=== PATIENT | male | born 1945 | race Caucasian/White ===

== ENCOUNTER 2018-04-01 11:43 | Outpatient (CLI) | payer MEDICARE ==
[2018-04-01] MEDS ORDERED: GADOBUTROL 7.5 MMOL/7.5 ML VIAL ONE (12:24)
[2018-04-01 12:39] LABS: CALCIUM 9.3 mg/dL (8.5-10.3); CREATININE 1.4 mg/dL (0.6-1.2)
[2018-04-01] MEDS ORDERED: GADOBUTROL 7.5 MMOL/7.5 ML VIAL IVP ONE (12:49)
--- NOTE | 2018-04-02 09:01 | MRI Report ---
Procedure Date: 04/01/2018 Accession Number: [id number] / [id number] Procedure: MRI - Brain W/WO CPT Code: FULL RESULT: EXAM: MRI BRAIN AND INTERNAL AUDITORY CANAL (IAC),WITHOUT AND WITH CONTRAST. EXAM DATE: 04/01/2018 01:15 PM. CLINICAL HISTORY: 72-year-old male. MIGRAINE, TINNITUS, VERTIGO. COMPARISON: None. TECHNIQUE: Multiplanar, multisequence T1-weighted and fluid-sensitive MRI sequences of the brain and IACs were performed. Other: None. IV Contrast: 7.5 mL Gadavist. FINDINGS: Brain Volume: Normal for age. Parenchyma/Dura: There is a 1.4 cm focus of high DWI signal and associated FLAIR signal abnormality (series 305 image 120, series 401 image 15) with nearly normalized associated ADC values, therefore concerning for subacute infarct, at least one week old. No MRI evidence of acute infarction. No acute hemorrhage or mass moderate scattered T2/FLAIR hyperintense periventricular, deep, and subcortical white matter lesions within cerebral hemispheres bilaterally. Chronic infarction left occipital lobe as evidenced by small focus of encephalomalacia and gliosis (series 401 image 13) No abnormal enhancement. Internal Auditory Canals (IACs): Normal. No cranial nerve lesion or inflammatory process identified. The inner ear structure are symmetric and unremarkable. Ventricles/Cisterns: No hydrocephalus. No abnormal extra-axial fluid collection or hemorrhage. Orbits: Symmetric and unremarkable. Sella Turcica: The pituitary gland, cavernous sinuses, suprasellar cistern and optic chiasm are unremarkable. Vasculature: Normal signal flow void is seen in the major arterial structures at the skull base. The dural sinuses are patent and enhance normally. Sinuses: No acute sinus disease. Bones: No focal pathologic appearing marrow signal changes. Other: None. IMPRESSION: 1. No evidence of retrocochlear pathology. The cerebellopontine angles bilaterally, the internal auditory canals bilaterally, the cochleas bilaterally, and the vestibular apparatuses bilaterally are unremarkable. No associated abnormal enhancement. 2. There is a 1.4 cm focus of high DWI signal and associated FLAIR signal abnormality (series 305 image 120, series 401 image 15) with nearly normalized associated ADC values, therefore concerning for subacute infarct, at least one week old. No MRI evidence of acute infarction. 3. Moderate scattered T2/FLAIR hyperintense periventricular, deep, and subcortical white matter lesions within cerebral hemispheres bilaterally. While nonspecific, these are favored to represent sequela of chronic microangiopathy. 4. Chronic infarction left occipital lobe as evidenced by small focus of encephalomalacia and gliosis (series 401 image 13) RADIA The above findings were discussed with Maik Monreal by Dr. Josie Ramirez at 09:00 hrs on 04/02/18.
== END 2018-04-01 11:44 | disposition home or self-care (01) ==
LOC: DI 11:43
PROVIDERS: ATTEND Family Medicine
DX: G43.909 Migraine, unspecified, not intractable, without status migrainosus (principal); H93.19 Tinnitus, unspecified ear; R42 Dizziness and giddiness
CPT/HCPCS: 36415; 70553; 80048; A9585

== ENCOUNTER 2018-04-14 15:07 | Outpatient (CLI) | payer MEDICARE ==
--- NOTE | 2018-04-15 13:33 | Ultrasound Report ---
Reason: CVA Procedure Date: 04/14/2018 Accession Number: [id number] / [id number] Procedure: US - Carotid Doppler Complete CPT Code: FULL RESULT: EXAM: BILATERAL CAROTID AND VERTEBRAL ARTERY DUPLEX DOPPLER ULTRASOUND: EXAM DATE: 04/14/2018 03:47 PM CLINICAL HISTORY: Recent left cerebral hemisphere CVA. COMPARISON: 04/01/2018 brain MRI. TECHNIQUE: Grayscale imaging, color Doppler, and duplex spectral Doppler were used to evaluate the carotid and vertebral arteries bilaterally. Static images were obtained. FINDINGS: Mild plaque is identified in the right and left common and internal carotid arteries. Normal antegrade flow is present in bilateral vertebral arteries. VELOCITIES (cm/sec): Right CCA mid: PSV 97 cm/sec CCA dist: PSV 73 cm/sec ICA prox: PSV 59 cm/sec, EDV 18 cm/sec ICA mid: PSV 70 cm/sec, EDV 27 cm/sec ICA dist: PSV 71 cm/sec, EDV 23 cm/sec ECA: PSV 93 cm/sec Vert: PSV 55 cm/sec ICA/CCA: 0.75 Left CCA mid: PSV 88 cm/sec CCA dist: PSV 67 cm/sec ICA prox: PSV 77 cm/sec, EDV 26 cm/sec ICA mid: PSV 78 cm/sec, EDV 26 cm/sec ICA dist: PSV 91 cm/sec, EDV 30 cm/sec ECA: PSV 93 cm/sec Vert: PSV 52 cm/sec ICA/CCA: 1.03 ICA diameter stenosis: Right: <50% by velocity and <70% by NASCET criteria. Left: <50% by velocity and <70% by NASCET criteria. IMPRESSION: 1. No significant bilateral carotid artery plaquing. 2. In the right carotid artery there are no elevated carotid artery velocities to suggest hemodynamically significant stenosis. 3. In the left carotid artery there are no elevated carotid artery velocities to suggest hemodynamically significant stenosis. 4. Normal antegrade flow is present in bilateral vertebral arteries. General Recommendations: Stenosis =50% ICA - Follow-up ultrasound 6-12 months Stenosis <50% ICA - High Risk Patient with plaque - Follow-up ultrasound 1-2 years Normal Study but High Risk Patient - Follow-up ultrasound 3-5 years Management recommendations and diagnostic criteria are based on current IAC endorsed standards in Carotid Artery Stenosis: Grayscale and Doppler Ultrasound Diagnosis. Validated velocity measurements with angiographic measurements and velocity criteria are extrapolated from diameter data as defined by the Society of Radiologists in Ultrasound Consensus Conference Radiology 2003; 229;340-346. RADIA
== END 2018-04-14 15:08 | disposition home or self-care (01) ==
LOC: DI 15:07
PROVIDERS: ATTEND Family Medicine
DX: I63.9 Cerebral infarction, unspecified (principal)
CPT/HCPCS: 93880

== ENCOUNTER 2018-11-02 14:33 | Emergency (ER) | payer MEDICARE ==
--- NOTE | 2018-11-02 15:08 | ED Physician Documentation ---
PD HPI FOCAL NEURO - Stated complaint Stated Complaint: STROKE LIKE SYMPTOMS - Chief complaint Chief Complaint: Cardiac - History obtained from History obtained from: Patient, Family - History of Present Illness Timing - onset: Today (This is a 72-year-old gentleman with history of coronary disease and stroke on neuro imaging in the past that was asymptomatic who presents with an episode today where he had severe diplopia and vertigo for 5 minutes. Now pretty much back to normal. It was not associated with headache. He has a history of coronary disease status post remote bypass and has been in bigeminy in the past, that is not a new phenomenon.) Review of Systems Ten Systems: 10 systems reviewed and negative Constitutional: denies: Fever, Chills, Fatigue Nose: denies: Rhinorrhea / runny nose, Congestion Throat: denies: Sore throat Cardiac: denies: Chest pain / pressure, Palpitations Respiratory: denies: Dyspnea, Cough PD PAST MEDICAL HISTORY - Past Medical History Cardiovascular: High cholesterol, Other Respiratory: None Endocrine/Autoimmune: None GI: GERD : Other HEENT: None Psych: None Musculoskeletal: None Derm: None - Past Surgical History Cardiovascular: CABG, Other - Present Medications Home Medications: Ambulatory Orders Medication Instructions Recorded Confirmed Aspirin [Aspir 81] 1 mg ORAL DAILY 08/12/14 08/12/14 Omeprazole [Prilosec] 20 mg ORAL DAILY 08/12/14 08/15/14 Tamsulosin [Flomax] 1 mg ORAL DAILY 08/12/14 08/15/14 Atorvastatin [Lipitor] 80 mg PO DAILY 08/15/14 08/15/14 Multivit-Min/FA/Lycopene/Lut 1 tab PO DAILY 08/15/14 08/15/14 [Centrum Silver Tablet] amLODIPine [Norvasc] 2.5 mg PO ONCE 11/02/18 11/02/18 - Allergies Allergies/Adverse Reactions: Allergies Allergy/AdvReac Type Severity Reaction Status Date / Time Sulfa (Sulfonamide AdvReac Rash Verified 11/02/18 14:45 Antibiotics) - Living Situation Living Situation: reports: With spouse/s.o. - Social History Does the pt have substance abuse?: No - Family History Family history: reports: Non contributory PD ED PE NORMAL - Vitals Vital signs reviewed: Yes - General General: Alert and oriented X 3, No acute distress - HEENT HEENT: PERRL, EOMI - Neck Neck: Supple, no meningeal sign, No bony TTP - Cardiac Cardiac: RRR, No murmur, Other (He was initially on bigeminy and on the monitor but on my exam was back in sinus rhythm) - Respiratory Respiratory: No respiratory distress, Clear bilaterally - Abdomen Abdomen: Soft, Non tender - Back Back: No CVA TTP, No spinal TTP - Derm Derm: Normal color, Warm and dry - Extremities Extremities: No edema, No calf tenderness / cord - Neuro Neuro: Alert and oriented X 3, Normal speech NIHSS - Time Time: 15:00 - Level of Consciousness Level of consciousness: (0) Alert, Keenly responsive LOC Questions: (0) Answers both Q's correct LOC Commands: (0) Performs both correctly - Gaze Best Gaze: (0) Normal - Visual Visual: (0) No loss - Facial Palsy Facial Palsy: (0) Normal, symmetrical movement - Motor Arms (both separate) Motor Arm (right): (0) No drift Motor Arm (left): (0) No drift - Motor Legs (both separate) Motor Leg (right): (0) No drift Motor Leg (left): (0) No drift - Limb Ataxia Limb Ataxia: (0) Absent - Sensory Sensory: (0) Normal - Best Language Best Language: (0) No aphasia - Dysarthria Dysarthria: (0) Normal - Extinction and Inattention (formally neg Extinction and inattention: (0) No abnormality - Total Score/Results Total Score/Result: 0 Results - Vitals Vitals: Vital Signs - 24 hr 11/02/18 11/02/18 11/02/18 14:41 15:02 15:30 Temperature 36.5 C Heart Rate 34 L 68 72 Respiratory 20 18 16 Rate Blood Pressure 147/80 H 142/86 H 126/67 O2 Saturation 97 95 96 11/02/18 11/02/18 11/02/18 16:00 16:30 16:48 Temperature Heart Rate 64 62 65 Respiratory 16 16 16 Rate Blood Pressure 126/77 144/85 H 151/70 H O2 Saturation 98 97 98 11/02/18 17:05 Temperature Heart Rate 61 Respiratory 18 Rate Blood Pressure 143/96 H O2 Saturation 98 Oxygen O2 Source Room air - EKG (time done) 1446 Rate: Rate (enter#) (83) Rhythm: NSR (with ventricular bigeminy) Intervals: Normal AL QRS: Normal Ischemia: Normal ST segments - Labs Labs: Laboratory Tests 11/02/18 11/02/18 11/02/18 14:58 14:58 14:58 WBC 7.2 RBC 4.82 Hgb 15.0 Hct 43.9 MCV 91.2 MCH 31.1 H MCHC 34.1 RDW 13.1 Plt Count 211 MPV 8.5 Neut # (Auto) 4.5 Lymph # (Auto) 1.6 Bremer # (Auto) 1.0 Eos # (Auto) 0.1 Baso # (Auto) 0.1 Absolute Nucleated RBC 0.00 Nucleated RBC % 0.0 Sodium 136 Potassium 4.0 Chloride 105 Carbon Dioxide 23 Anion Gap 8.0 BUN 25 H Creatinine 1.1 Estimated GFR (MDRD) 66 L Glucose 99 Calcium 9.1 Total Bilirubin 0.8 AST 33 ALT 46 Alkaline Phosphatase 70 Troponin I < 0.04 Total Protein 6.9 Albumin 4.0 Globulin 2.9 Albumin/Globulin Ratio 1.4 Lipase 31 - Rads (name of study) CTA Head and Neck Radiology: Discussed with rads (Noncon head normal, Angioma head, multiple areas of atherosclerosis, see verbose reports. CTA of the neck concerning for right vertebral artery dissection and there is also other atherosclerosis on the formal report.) PD MEDICAL DECISION MAKING - ED course ED course: This is a 72-year-old gentleman who presents with what seems like a posterior TIA. He was rushed back from triage because of a pulse of 54 but this was on pulse oximetry and electrically his pulse was more like 70 or 80 and bigeminy which quickly converted to normal sinus rhythm and I do suspect this is not causative. CT angiography of the head and neck shows multiple areas of atherosclerosis but most pressing is a right vertebral artery dissection which may be causative. He was administered aspirin. He will need transfer to a higher level of care for potential neurology and neurosurgery consultation and Billie was called at 4:[address] Dumas at [facility] at [phone], dennis completed. Departure - Departure Disposition: 02 Transfer Acute Care Hosp Clinical Impression: Acute posterior circulation transient ischemic attack, Vertebral artery dissection Condition: Serious
[2018-11-02 15:10] LABS: BASOPHILS # (AUTO) 0.1 10^3/uL (0.0-0.1); BASOPHILS % (AUTO) 0.8 %; EOSINOPHILS # (AUTO) 0.1 10^3/uL (0.0-0.7); EOSINOPHILS % (AUTO) 1.5 %; LYMPHOCYTES # (AUTO) 1.6 10^3/uL (1.5-3.5); LYMPHOCYTES % (AUTO) 21.6 %; MEAN CORPUSCULAR HEMOGLOBIN 31.1 pg (27.0-31.0); MEAN CORPUSCULAR HGB CONC 34.1 g/dL (32.0-36.0); MEAN CORPUSCULAR VOLUME 91.2 fL (80.0-94.0); MEAN PLATELET VOLUME 8.5 fL (7.4-11.4); MONOCYTES % (AUTO) 13.9 %; NEUTROPHILS # (AUTO) 4.5 10^3/uL (1.5-6.6); NEUTROPHILS % (AUTO) 62.2 %; PLT - PLATELET COUNT 211 10^3/uL (130-450); RED BLOOD COUNT 4.82 10^6/uL (4.70-6.10); RED CELL DISTRIBUTION WIDTH 13.1 % (12.0-15.0); WHITE BLOOD COUNT 7.2 x10^3/uL (4.8-10.8)
[2018-11-02 15:16] LABS: ALBUMIN/GLOBULIN RATIO 1.4 (1.0-2.2); BILIRUBIN,TOTAL 0.8 mg/dL (0.2-1.0); CALCIUM 9.1 mg/dL (8.5-10.3); CREATININE 1.1 mg/dL (0.6-1.2); TOTAL PROTEIN 6.9 g/dL (6.7-8.2)
[2018-11-02] MEDS ORDERED: IOPAMIDOL-300 100 ML VIAL ONE (15:31)
--- NOTE | 2018-11-02 16:22 | CT Report ---
Reason: Vertigo, diplopia Procedure Date: 11/02/2018 Accession Number: [id number] / [id number] Procedure: CT - ANGIO HEAD W CPT Code: FULL RESULT: EXAM: CT ANGIOGRAM HEAD. CT SCAN OF THE HEAD WITHOUT AND WITH CONTRAST. EXAM DATE: 11/02/2018 03:43 PM CLINICAL HISTORY: 72-year-old male. Vertigo, diplopia. COMPARISON: MR brain 04/01/2018 TECHNIQUE: - CT Scan Head: Using a multidetector scanner, axial images were acquired from the foramen magnum to the skull vertex prior to and following contrast administration. - CT Angiogram: Using a multidetector scanner, high-resolution axial images were acquired from the skull base through vertex following rapid infusion of intravenous contrast. Reformats: Multiplanar MIP reformats were reconstructed. Nascet criteria used for stenosis measurement. IV Contrast: 80 cc Isovue-300. In accordance with CT protocol optimization, one or more of the following dose reduction techniques were utilized for this exam: automated exposure control, adjustment of mA and/or KV based on patient size, or use of iterative reconstructive technique. FINDINGS: NON-CONTRAST HEAD: Parenchyma: No intraparenchymal hemorrhage. No evidence of mass, midline shift, or CT findings of infarction. Solomon-white differentiation is distinct. Extraaxial Spaces: Normal for age. No subdural or epidural collections identified. Ventricles: Normal in size and position. Sinuses and orbits: Imaged paranasal sinuses, orbits, and mastoids show no significant abnormality. Bones: No evidence of fracture or calvarial defect. Other: None. POST-CONTRAST HEAD: No abnormal enhancement. CT ANGIOGRAM HEAD: Moderate atherosclerosis right carotid siphon, maximal stenosis approximately 50%. Diminutive but patent right posterior communicating artery. Moderate atherosclerosis of left carotid siphon with a maximal stenosis 30-40%. Diminutive but patent right posterior communicating artery. The V4 segment of the right vertebral artery is irregular with narrowing measuring up to 60-70% (for example series 6 image 22). The visualized left vertebral artery is unremarkable. The left PARACHUTE PANEL JOINER is unremarkable. The right PARACHUTE PANEL JOINER is unremarkable. The right MCA is unremarkable. The ACAs bilaterally are unremarkable. The left MCA is unremarkable. DURAL VENOUS SINUSES AND MAJOR CENTRAL VEINS: Patent. IMPRESSION: 1. No evidence of acute intracranial abnormality on the noncontrast CT head. Specifically, no evidence of acute infarct, intracranial hemorrhage, mass effect, midline shift, or hydrocephalus. 2. No abnormal enhancement on the postcontrast CT head. 3. No CTA evidence of high-grade stenosis, large vessel occlusion, aneurysm, or vascular malformation within extracranial or intracranial arteries. 4. Moderate atherosclerosis right carotid siphon, maximal stenosis approximately 50%. 5. Moderate atherosclerosis of left carotid siphon with a maximal stenosis 30-40%. 6. The V4 segment of the right vertebral artery is irregular with narrowing measuring up to 60-70% (for example series 6 image 22). This is nonspecific for atherosclerosis versus age-indeterminate dissection. 7. Concurrently obtained CTA neck is dictated separately. RADIA
--- NOTE | 2018-11-02 16:32 | CT Report ---
Reason: Vertigo, diplopia Procedure Date: 11/02/2018 Accession Number: [id number] / [id number] Procedure: CT - ANGIO NECK W/WO CPT Code: FULL RESULT: EXAM: CT ANGIOGRAM NECK EXAM DATE: 11/02/2018 03:43 PM. CLINICAL HISTORY: 72-year-old male. Vertigo, diplopia. COMPARISON: CTA head obtained concurrently TECHNIQUE: Routine axial helical imaging was performed from the skull base through the aortic arch. Reconstructions: Routine multiplanar 3D MIP reconstructions. IV Contrast: 80 cc Isovue 300. Evaluation of arterial stenosis is based on a NASCET method of measurement. In accordance with CT protocol optimization, one or more of the following dose reduction techniques were utilized for this exam: automated exposure control, adjustment of mA and/or KV based on patient size, or use of iterative reconstructive technique. FINDINGS: Right Carotid: Moderate atherosclerosis right carotid bifurcation and proximal cervical right ICA, maximal stenosis 30-40%, mild by NASCET criteria The common carotid, internal carotid, and external carotid arteries are patent. No evidence of acute dissection Left Carotid: Mild atherosclerosis left carotid bifurcation and left carotid bulb, no hemodynamically significant stenosis. The common carotid, internal carotid, and external carotid arteries are widely patent. No dissection, significant atherosclerotic plaque, or calcification identified. Extracranial Vertebrals: There is irregular, incomplete enhancement throughout the right vertebral artery with segmental non-opacification, overall concerning for age-indeterminate dissection, including possibility of acute dissection. The left vertebral artery is dominant, approximately 50% narrowing origin of the left vertebral artery.. Intracranial Circulation: Concurrently obtained CTA head is dictated separately. Other: The visualized lung apices are clear. Status post prior sternotomy with sternotomy wires. Mild to moderate multilevel degenerative spondylosis of the visualized spine, no acute fracture or malalignment. The visualized soft tissues of the neck demonstrate no acute abnormality. IMPRESSION: 1. There is irregular, incomplete enhancement throughout the right vertebral artery with segmental non-opacification, overall concerning for age-indeterminate dissection, including possibility of acute dissection. 2. The left vertebral artery is dominant, approximately 50% narrowing origin of the left vertebral artery. 3. Moderate atherosclerosis right carotid bifurcation and proximal cervical right ICA, maximal stenosis 30-40%, mild by NASCET criteria 4. Mild atherosclerosis left carotid bifurcation and left carotid bulb, no hemodynamically significant stenosis. 5. Concurrently obtained CTA head is dictated separately. RADIA The critical result notification system was initiated by Dr. Josie Ramirez at 04:27 PM on 11/02/2018. The above critical result findings were discussed with Davis Hathaway by Dr. Josie Ramirez at 04:30 PM on 11/02/2018.
[2018-11-02] MEDS ORDERED: ASPIRIN CHEW 81 MG TABLET PO STA (16:37)
[2018-11-02] MEDS ORDERED: IOPAMIDOL-300 100 ML VIAL IVP ONE (17:30)
[2018-11-02 18:29] VITALS: BP 106/74
== END 2018-11-02 18:18 | disposition short-term general hospital (02) ==
LOC: ED 14:33
DX: G45.8 Other transient cerebral ischemic attacks and related syndromes (principal); I77.74 Dissection of vertebral artery; R00.8 Other abnormalities of heart beat; I25.10 Atherosclerotic heart disease of native coronary artery without angina pectoris; Z95.1 Presence of aortocoronary bypass graft; Z86.73 Personal history of transient ischemic attack (TIA), and cerebral infarction without residual deficits; Z79.82 Long term (current) use of aspirin
CPT/HCPCS: 36415; 70496; 70498; 80053; 83690; 84484; 85025; 93005; 99285; A9270; Q9967; 99284

== ENCOUNTER 2018-11-02 18:20 | Outpatient (CLI) | payer MEDICARE | END 2018-11-02 18:21 | disposition short-term general hospital (02) | LOC: EMS 18:20 | PROVIDERS: ATTEND Surgery | DX: I77.74 Dissection of vertebral artery (principal) | CPT/HCPCS: A0425; A0426 ==

== ENCOUNTER 2018-11-20 12:32 | Outpatient (CLI) | payer MEDICARE | END 2018-11-20 12:33 | disposition home or self-care (01) | LOC: DI 12:32 | PROVIDERS: ATTEND Family Medicine | DX: G45.9 Transient cerebral ischemic attack, unspecified (principal); I25.10 Atherosclerotic heart disease of native coronary artery without angina pectoris; I10 Essential (primary) hypertension; I51.7 Cardiomegaly | CPT/HCPCS: 93306 ==

== ENCOUNTER 2019-08-05 09:15 | Outpatient (CLI) | payer MEDICARE ==
[2019-08-05 12:02] LABS: BASOPHILS % (AUTO) 0.4 %; EOSINOPHILS # (AUTO) 0.3 10^3/uL (0.0-0.7); EOSINOPHILS % (AUTO) 4.7 %; HGB - HEMOGLOBIN 15.3 g/dL (14.0-18.0); LYMPHOCYTES # (AUTO) 1.4 10^3/uL (1.5-3.5); LYMPHOCYTES % (AUTO) 26.4 %; MEAN CORPUSCULAR HEMOGLOBIN 31.5 pg (27.0-31.0); MEAN CORPUSCULAR HGB CONC 33.3 g/dL (32.0-36.0); MEAN CORPUSCULAR VOLUME 94.7 fL (80.0-94.0); MEAN PLATELET VOLUME 10.8 fL (7.4-11.4); MONOCYTES # (AUTO) 0.8 10^3/uL (0.0-1.0); MONOCYTES % (AUTO) 14.2 %; NEUTROPHILS # (AUTO) 2.8 10^3/uL (1.5-6.6); NEUTROPHILS % (AUTO) 53.7 %; PLT - PLATELET COUNT 206 10^3/uL (130-450); RED BLOOD COUNT 4.86 10^6/uL (4.70-6.10); RED CELL DISTRIBUTION WIDTH 12.3 % (12.0-15.0); WHITE BLOOD COUNT 5.3 x10^3/uL (4.8-10.8)
[2019-08-05 12:15] LABS: ALBUMIN 4.1 g/dL (3.2-5.5); ALBUMIN/GLOBULIN RATIO 1.6 (1.0-2.2); BILIRUBIN,TOTAL 0.8 mg/dL (0.2-1.0); CALCIUM 9.4 mg/dL (8.5-10.3); CREATININE 1.2 mg/dL (0.6-1.2); TOTAL PROTEIN 6.7 g/dL (6.7-8.2)
== END 2019-08-05 23:59 | disposition home or self-care (01) ==
LOC: LAB.WCP 09:15
PROVIDERS: ATTEND Family Medicine
DX: C61 Malignant neoplasm of prostate (principal)
CPT/HCPCS: 36415; 80053; 84153; 85025

== ENCOUNTER 2020-09-04 10:33 | Outpatient (CLI) | payer MEDICARE ==
[2020-09-04 18:15] LABS: BASOPHILS % (AUTO) 0.5 %; EOSINOPHILS # (AUTO) 0.1 10^3/uL (0.0-0.7); EOSINOPHILS % (AUTO) 2.5 %; HGB - HEMOGLOBIN 16.2 g/dL (14.0-18.0); LYMPHOCYTES # (AUTO) 1.3 10^3/uL (1.5-3.5); LYMPHOCYTES % (AUTO) 23.1 %; MEAN CORPUSCULAR HEMOGLOBIN 31.6 pg (27.0-31.0); MEAN CORPUSCULAR HGB CONC 33.3 g/dL (32.0-36.0); MEAN CORPUSCULAR VOLUME 94.9 fL (80.0-94.0); MEAN PLATELET VOLUME 10.8 fL (7.4-11.4); MONOCYTES # (AUTO) 0.8 10^3/uL (0.0-1.0); MONOCYTES % (AUTO) 13.3 %; NEUTROPHILS # (AUTO) 3.4 10^3/uL (1.5-6.6); NEUTROPHILS % (AUTO) 59.9 %; PLT - PLATELET COUNT 239 10^3/uL (130-450); RED BLOOD COUNT 5.12 10^6/uL (4.70-6.10); RED CELL DISTRIBUTION WIDTH 12.2 % (12.0-15.0); WHITE BLOOD COUNT 5.7 x10^3/uL (4.8-10.8)
[2020-09-04 18:52] LABS: ALBUMIN 4.2 g/dL (3.2-5.5); ALBUMIN/GLOBULIN RATIO 1.5 (1.0-2.2); ALKALINE PHOSPHATASE 80 IU/L (42-121); ALT ALANINE AMINOTRANSFERASE 44 IU/L (10-60); AST ASPARTATE AMINOTRANSFERASE 31 IU/L (10-42); BILIRUBIN,TOTAL 0.8 mg/dL (0.2-1.0); BUN - BLOOD UREA NITROGEN 20 mg/dL (6-20); CALCIUM 9.6 mg/dL (8.5-10.3); CARBON DIOXIDE - CO2 25 mmol/L (21-32); CHLORIDE 106 mmol/L (101-111); CHOL/HDL RATIO 3.4 (<5.0); CHOLESTEROL 122 mg/dL; CREATININE 1.2 mg/dL (0.6-1.2); GLUCOSE 99 mg/dL (70-100); HDL CHOLESTEROL 36 mg/dL; LDL CHOLESTEROL,CALCULATED 53 mg/dL; LDL/HDL RATIO 1.5 (<3.6); VLDL CHOLESTEROL 33 mg/dL
== END 2020-09-04 10:34 | disposition home or self-care (01) ==
LOC: LAB.N 10:33
PROVIDERS: ATTEND Internal Medicine
DX: G45.9 Transient cerebral ischemic attack, unspecified (principal); I63.9 Cerebral infarction, unspecified; I25.10 Atherosclerotic heart disease of native coronary artery without angina pectoris; I10 Essential (primary) hypertension; E78.5 Hyperlipidemia, unspecified; C61 Malignant neoplasm of prostate; Z13.29 Encounter for screening for other suspected endocrine disorder
CPT/HCPCS: 36415; 80053; 80061; 84443; 85025; G0103; 83721; 84153

== ENCOUNTER 2021-05-09 07:15 | Day surgery (SDC) | payer MEDICARE ==
[~2021-05-09 07:15] MED LIST: PROPOFOL 200 MG/20 ML VIAL IVP ONE
[2021-05-09] MEDS ORDERED: LACTATED RINGERS 1,000 ML IV ONE ×2 (07:55→09:11)
--- NOTE | 2021-05-09 07:56 | ANESTHESIA ---
Pre-Anesthesia VS, & Labs - Diagnosis screening, hx of polyps - Procedure colonoscopy Vital Signs: Temp Pulse Resp BP Pulse Ox 36.6 C 76 18 164/82 H 99 05/09/21 07:31 05/09/21 07:31 05/09/21 07:31 05/09/21 07:31 05/09/21 07:31 Height: 5 ft 9 in Weight (kg): 105 kg Body Mass Index: 34.2 BMI Classification: Obese - Lab Results Lab results reviewed: Yes Home Medications and Allergies Home Medications: Ambulatory Orders Calcium Carbonate [Tums (Calcium Carbonate 500mg)] 2 tab PO PRN PRN 05/08/21 Tamsulosin [Flomax] 1 mg ORAL DAILY 08/12/14 Atorvastatin [Lipitor] 80 mg PO DAILY 08/15/14 Multivit-Min/FA/Lycopene/Lut [Centrum Silver Tablet] 1 tab PO DAILY 08/15/14 amLODIPine [Norvasc] 2.5 mg PO ONCE 11/02/18 Calcium Carbonate [Tums (Calcium Carbonate 500mg)] 2 tab PO PRN PRN 05/08/21 Allergies/Adverse Reactions: Allergies Allergy/AdvReac Type Severity Reaction Status Date / Time Sulfa (Sulfonamide AdvReac Rash Verified 11/02/18 14:45 Antibiotics) Anes History & Medical History - Anesthetic History Anesthesia Complications: reports: No previous complications Family history of Anesthesia Complications: Denies Family history of Malignant Hyperthermia: Denies - Medical History Cardiovascular: reports: High cholesterol, Other (TIA/CVA, no residual weakness) Pulmonary: reports: None Gastrointestinal: reports: GERD Urinary: reports: None Neuro: reports: TIA Musculoskeletal: reports: Chronic back pain Endocrine/Autoimmune: reports: None Skin: reports: None Smoking Status: Never smoker History of Cancer?: Yes (prostate) - Surgical History General: reports: Appendectomy, Colonoscopy Cardiothoracic: reports: CABG (2006), Other Exam General: Alert, Oriented x3, Cooperative Dental: WNL Mouth Openin Fingerbreadth Neck Mobility: Normal Mallampati classification: II Thyromental Distance: 4-6 cm Respiratory: Lungs clear, Normal breath sounds, No respiratory distress Cardiovascular: Regular rate Neurological: Normal speech Mental/Cognitive Status: Alert/Oriented X3, Normal for patient Cognitive Status: Within normal limits Plan Anesthesia Type: Total IV Consent for Procedure(s) Verified and Reviewed: Yes Code Status: Attempt Resuscitation ASA classification: 3-Severe systemic disease Is this case an emergency?: No
[2021-05-09] MEDS ORDERED: MIDAZOLAM 2 MG/2 ML VIAL ONE (08:20)
[2021-05-09] MEDS ORDERED: fentaNYL 100 MCG/2 ML VIAL ONE (08:21)
[2021-05-09 09:22] VITALS: BP 113/77
--- NOTE | 2021-05-09 09:56 | ANESTHESIA POST OP EVALUATION ---
Anesthesia Post Eval - Post Anesthesia Eval Vitals: Last Vital Signs Temp 36.6 C 05/09/21 09:21 Pulse 59 L 05/09/21 09:21 Resp 16 05/09/21 09:21 BP 113/77 05/09/21 09:21 Pulse Ox 97 05/09/21 09:21 CV Function Including HR & BP: Stable Pain Control: Satisfactory Nausea & Vomiting: Negative Mental Status: Baseline Respiratory Status: Airway Patent Hydration Status: Satisfactory Anesthesia Complications: None
== END 2021-05-09 07:16 | disposition home or self-care (01) ==
LOC: SDS 07:15
PROVIDERS: ATTEND Surgery
PROC: 0DBL8ZZ Excision of Transverse Colon, Via Natural or Artificial Opening Endoscopic (ICD-10-PCS; 2021-05-09)
PROC: 0DBN8ZZ Excision of Sigmoid Colon, Via Natural or Artificial Opening Endoscopic (ICD-10-PCS; principal; 2021-05-09 08:15)
DX: Z12.11 Encounter for screening for malignant neoplasm of colon (principal); D12.5 Benign neoplasm of sigmoid colon; D12.3 Benign neoplasm of transverse colon; K64.8 Other hemorrhoids; I25.10 Atherosclerotic heart disease of native coronary artery without angina pectoris; R00.8 Other abnormalities of heart beat; K21.9 Gastro-esophageal reflux disease without esophagitis; Q60.2 Renal agenesis, unspecified; M79.7 Fibromyalgia; I69.354 Hemiplegia and hemiparesis following cerebral infarction affecting left non-dominant side; Z87.19 Personal history of other diseases of the digestive system; Z85.46 Personal history of malignant neoplasm of prostate; Z95.1 Presence of aortocoronary bypass graft; Z92.3 Personal history of irradiation; Z79.02 Long term (current) use of antithrombotics/antiplatelets; Z79.1 Long term (current) use of non-steroidal anti-inflammatories (NSAID); Z79.899 Other long term (current) drug therapy
CPT/HCPCS: 45380; 45385; J7120

== ENCOUNTER 2021-06-18 08:00 | Outpatient (CLI) | payer MEDICARE ==
[2021-06-18 18:02] LABS: BASOPHILS % (AUTO) 0.5 %; EOSINOPHILS # (AUTO) 0.1 10^3/uL (0.0-0.7); EOSINOPHILS % (AUTO) 2.7 %; HCT - HEMATOCRIT 44.9 % (42.0-52.0); HGB - HEMOGLOBIN 15.2 g/dL (14.0-18.0); LYMPHOCYTES # (AUTO) 1.2 10^3/uL (1.5-3.5); MEAN CORPUSCULAR HEMOGLOBIN 32.1 pg (27.0-31.0); MEAN CORPUSCULAR HGB CONC 33.9 g/dL (32.0-36.0); MEAN CORPUSCULAR VOLUME 94.9 fL (80.0-94.0); MEAN PLATELET VOLUME 10.7 fL (7.4-11.4); MONOCYTES # (AUTO) 0.9 10^3/uL (0.0-1.0); MONOCYTES % (AUTO) 20.7 %; NEUTROPHILS % (AUTO) 47.6 %; PLT - PLATELET COUNT 214 10^3/uL (130-450); RED BLOOD COUNT 4.73 10^6/uL (4.70-6.10); RED CELL DISTRIBUTION WIDTH 12.2 % (12.0-15.0); WHITE BLOOD COUNT 4.1 x10^3/uL (4.8-10.8)
[2021-06-18 18:44] LABS: ALBUMIN 3.9 g/dL (3.2-5.5); ALBUMIN/GLOBULIN RATIO 1.4 (1.0-2.2); ALKALINE PHOSPHATASE 69 IU/L (42-121); ALT ALANINE AMINOTRANSFERASE 38 IU/L (10-60); AST ASPARTATE AMINOTRANSFERASE 35 IU/L (10-42); BILIRUBIN,TOTAL 0.9 mg/dL (0.2-1.0); BUN - BLOOD UREA NITROGEN 19 mg/dL (6-20); CARBON DIOXIDE - CO2 24 mmol/L (21-32); CHLORIDE 105 mmol/L (101-111); CHOL/HDL RATIO 3.1 (<5.0); CHOLESTEROL 111 mg/dL; CREATININE 1.3 mg/dL (0.6-1.2); CREATININE,URINE 219.9 mg/dL; GFR - MDRD 54 (>89); GLUCOSE 97 mg/dL (70-100); HDL CHOLESTEROL 36 mg/dL; LDL CHOLESTEROL,CALCULATED 56 mg/dL; LDL/HDL RATIO 1.6 (<3.6); MICROALBUM/CREATININE RATIO,UR 29.1 ug/mg (<30.0); MICROALBUMIN,URINE 6.4 mg/dL (0-300.0); POTASSIUM 4.2 mmol/L (3.5-5.0); SODIUM 137 mmol/L (135-145); TOTAL PROTEIN 6.7 g/dL (6.7-8.2); TRIGLYCERIDES 94 mg/dL; VLDL CHOLESTEROL 19 mg/dL
[2021-06-18 18:54] LABS: THYROID STIMULATING HORMONE 2.22 uIU/mL (0.34-5.60)
[2021-06-18 20:40] LABS: ESTIMATED AVERAGE GLUCOSE 114 mg/dL (70-100); HEMOGLOBIN A1c% 5.6 % (4.27-6.07)
== END 2021-06-18 23:59 | disposition home or self-care (01) ==
LOC: LAB.WCP 08:00
PROVIDERS: ATTEND Internal Medicine
DX: I10 Essential (primary) hypertension (principal); R73.01 Impaired fasting glucose; C61 Malignant neoplasm of prostate; E78.5 Hyperlipidemia, unspecified
CPT/HCPCS: 36415; 80053; 80061; 82043; 82570; 83036; 83721; 84153; 84443; 85025

== ENCOUNTER 2022-05-03 10:41 | Outpatient (CLI) | payer MEDICARE ==
--- NOTE | 2022-05-03 14:41 | CT Report ---
PROCEDURE: CHEST WO INDICATIONS: CHEST WALL PAIN TECHNIQUE: Noncontrast 1mm axial images were acquired from the pulmonary apices to the posterior costophrenic an gles. Axial 5 mm soft tissue kernel reconstructions were performed as well as 8 mm axial MIP and cor onal and sagittal 5 mm reformations. For radiation dose reduction, the following was used: automate d exposure control, adjustment of mA and/or kV according to patient size. COMPARISON: None FINDINGS: Image quality: Excellent. Lungs and pleura: No acute air space opacities. No pleural effusions or pneumothorax. Central and peripheral airways are patent and normal in caliber. There is a 3 mm posterior left lower lobe nodul e (image 194/series 4). There is a 4 mm subpleural nodule in the left lower lobe (image 237/series 4) . Otherwise, no suspicious pulmonary nodules or masses. No septal thickening or nodularity. Mediastinum: Heart size is normal. No pericardial effusion. Moderate atherosclerotic calcifications of the coronary arteries. No mediastinal adenopathy by size criteria. Thoracic aorta and central p ulmonary arteries are normal in size. Scattered atherosclerotic calcifications of the thoracic aorta . Esophagus is normal in caliber. No hiatal hernia. Multiple median sternotomy wires are present wi thout substernal fluid collections. Bones and chest wall: No suspicious bony lesions. No acute vertebral body compression fractures. No acute rib fractures visualized. No axillary or supraclavicular adenopathy by size criteria. The thy roid is normal in size and there are no incidental findings. Abdomen: Visualized upper abdominal solid organs and bowel loops appear normal in the absence of con trast. IMPRESSION: CT chest without acute cardiopulmonary abnormalities to explain patient's symptoms. No evidence for a cute fracture. Median sternotomy wires are present without adjacent inflammatory changes or substerna l fluid collection. Atherosclerosis. Left lower lobe pulmonary nodules measuring up to 4 mm in size. Consider follow-up CT chest in one ye ar to document stability. CLINICAL RECOMMENDATION STATEMENTS: In patients <35 years with an ITN detected on CT, MRI, or extrathyroidal ultrasound, the Committee re commends further evaluation with dedicated thyroid ultrasound if the nodule is "e1 cm and has no susp icious imaging features, and if the patient has normal life expectancy. In patients "e35 years with an ITN detected on CT, MRI, or extrathyroidal ultrasound, the Committee r ecommends further evaluation with dedicated thyroid ultrasound if the nodule is "e1.5 cm and has no s uspicious imaging features, and if the patient has normal life expectancy. (ACR, 2014) Reviewed by: Misael Chacon MD on 05/03/2022 2:39 PM PDT Approved by: Misael Chacon MD on 05/03/2022 2:39 PM PDT Station ID: [id number]
== END 2022-05-03 10:42 | disposition home or self-care (01) ==
LOC: DI 10:41
PROVIDERS: ATTEND Internal Medicine
DX: R07.89 Other chest pain (principal); Z85.46 Personal history of malignant neoplasm of prostate; I25.10 Atherosclerotic heart disease of native coronary artery without angina pectoris; R91.8 Other nonspecific abnormal finding of lung field

== ENCOUNTER 2023-01-16 15:57 | Outpatient (CLI) | payer MEDICARE ==
--- NOTE | 2023-01-16 18:33 | XRAY Report ---
PROCEDURE: Thoracic Spine 3 View INDICATIONS: BACK PAIN THORACIC REGION TECHNIQUE: 3 views of the thoracic spine were acquired. COMPARISON: CT chest 05/03/2022 FINDINGS: Bones: No definite or severe thoracic vertebral body fracture identified. Multilevel degenerative ch anges of the thoracic spine are present. 12 pairs of ribs are noted, and appear intact where visuali zed. Median sternotomy wires are present. Soft tissues: No paravertebral stripe thickening. IMPRESSION: No definitive thoracic spine fracture identified. If symptoms persist, follow-up CT or MRI may be hel pful for further evaluation. Reviewed by: Darrin Demarco MD on 01/16/2023 6:32 PM PDT Approved by: Darrin Demarco MD on 01/16/2023 6:32 PM PDT Station ID: [id number]
== END 2023-01-16 15:58 | disposition home or self-care (01) ==
LOC: DI 15:57
PROVIDERS: ATTEND Physician Assistant Medical
DX: M47.814 Spondylosis without myelopathy or radiculopathy, thoracic region (principal)